=== PATIENT | female | born 1980 | race Caucasian/White ===

== ENCOUNTER 2022-01-12 10:52 | Day surgery (SDC) | payer OTHER ==
[~2022-01-12] VITALS: Ht 165.1 cm; Wt 70.1 kg
[~2022-01-12 10:52] MED LIST: ATROPINE SULFATE5 ML OP; FERROUS SU325 MG/TAB PO; IRON325 MG PO; KLONOPIN 0.5MG0.5 MG PO; MOTRIN 800800 MG/TAB PO; PERCOCET 325 MG1 TA2 PO; PRENATAL1 TA1 PO; ZANTAC-360 (FAM20 MG PO
[2022-01-12] MEDS ORDERED: DUREZOL 5 ML5 ML OU (13:17)
[2022-01-12 13:41] VITALS: BP 114/88; PULSE 103; TEMP 98
[2022-01-12 14:45] VITALS: BP 114/85; PULSE 95; TEMP 97.7
--- NOTE | 2022-01-12 14:45 | NUR ---
pt to bay 3 via cart from endo lab, walked to chair, no c/o, takes juice, call light in reach
[2022-01-12 15:00] VITALS: BP 100/80; PULSE 83
[2022-01-12 15:15] VITALS: BP 109/77; PULSE 81
--- NOTE | 2022-01-12 15:15 | NUR ---
Dr here to talk with pt on results and how to procede
[2022-01-12 15:30] VITALS: BP 109/87; PULSE 83
--- NOTE | 2022-01-12 15:30 | NUR ---
iv d'cd intact, pt up in room dressed, reviewed discharged inst. with pt on followup and precautions with verbal understanding. pt discharged via w/c to car
== END 2022-01-12 15:30 | disposition home or self-care (01) ==
LOC: SDCO 10:52
DX: K29.71 Gastritis, unspecified, with bleeding (principal); K63.3 Ulcer of intestine; K50.10 Crohn's disease of large intestine without complications; K64.4 Residual hemorrhoidal skin tags; K52.9 Noninfective gastroenteritis and colitis, unspecified; F17.210 Nicotine dependence, cigarettes, uncomplicated; Z79.899 Other long term (current) drug therapy
CPT/HCPCS: J2250; J2704; J3010; J7120

== ENCOUNTER 2023-02-20 10:10 | Day surgery (SDC) | payer BC ==
[~2023-02-20] VITALS: Ht 165.1 cm; Wt 76.4 kg
[~2023-02-20 10:10] MED LIST changes: +DUREZOL 5 ML5 ML OU
[2023-02-20] MEDS ORDERED: FERROUS SU325 MG/TAB PO (10:33)
[2023-02-20] MEDS ORDERED: HUMIRA40 MG/0.3 SQ (10:35)
[2023-02-20 10:52] VITALS: BP 118/87; PULSE 96; TEMP 97
[2023-02-20 11:35] VITALS: BP 108/85; PULSE 99; TEMP 97.1
[2023-02-20 11:50] VITALS: BP 113/85; PULSE 56
[2023-02-20 12:05] VITALS: BP 113/78; PULSE 91
--- NOTE | 2023-02-20 12:33 | NUR ---
[id number]: PT TO [facility] FROM [facility] S/P COLONOSCOPY WITH BIOPSIES A&O, NAD, AMBULATED TO CHAIR FROM [facility] WITH 2 PERSON SUPPORT, STEADY GAIT PLACED ON MONITOR, VSS ON RA RECEIVED REPORT AND ASSUMED CARE OF PT FROM DANIEL KIRK AT BEDSIDE PROVIDED WATER AND CRACKERS PER REQUEST - TOLERATIN WELL. MD IN TO SPEAK WITH PT/FAMILY POST PROCEEDURE. PT HAS REMAINED A&O, NAD, VSS ON RA, TOLERATING PO, IS WITHOUT SIGNIFICANT COMPLAINT, WITH STEADY GAIT THRU OUT ENDO STAY IV D/C'D. D/C INSTRUCTIONS, ANY FOLLOW UP REVIEWED AND HANDED TO PT. ALL QUESTIONS AND CONCERNS ADDRESSED TO PT SATISFACTION. TAKEN TO EXIT VIA W/C WITH ALL BELONGINGS AND PAPERWORK IN HAND, ASSISTED INTO PASSENGER SEAT OF POV. SPOUSE TO DRIVE HOME.
== END 2023-02-20 12:10 | disposition home or self-care (01) ==
LOC: SDCO 10:10
DX: K63.5 Polyp of colon (principal); K63.89 Other specified diseases of intestine; K50.10 Crohn's disease of large intestine without complications; K62.89 Other specified diseases of anus and rectum; K64.4 Residual hemorrhoidal skin tags; Z79.899 Other long term (current) drug therapy; Z87.891 Personal history of nicotine dependence; Z28.310 Unvaccinated for COVID-19
CPT/HCPCS: J2704; J7120